=== PATIENT | female | born 1990 | race Caucasian/White ===

== ENCOUNTER 2019-11-25 11:47 | Emergency (ER) | payer MEDICAID ==
[~2019-11-25] VITALS: Ht 157.5 cm; Wt 49.9 kg
[2019-11-25 12:06] VITALS: BP_SYST 116
[2019-11-25 12:17] VITALS: BP_SYST 116
== END 2019-11-25 12:17 | disposition home or self-care (01) ==
LOC: SED 11:47
DX: N39.0 Urinary tract infection, site not specified (principal)
CPT/HCPCS: 81002; 81025; 99283